=== PATIENT | male | born 1975 | race African-American/Black ===

== ENCOUNTER 2025-09-13 06:18 | Inpatient (IN) | payer MEDICAID ==
[2025-09-13 14:43] VITALS: BP 113/87; PULSE 85; RESP 16; TEMP 97.7; O2SAT 99
[2025-09-13 20:10] VITALS: BP 130/94; PULSE 96; RESP 18; TEMP 97.7; O2SAT 98
[2025-09-14 08:09] VITALS: BP 125/82; PULSE 81; RESP 18; TEMP 97.7; O2SAT 98
[2025-09-14 08:16] LABS: PLATELET COUNT (AUTO) 190 K/uL (150-450); RED BLOOD CELL COUNT(AUTO) 3.75 MIL/uL (4.50-5.90); RED CELL DISTRIBUTION WIDTH 12.6 % (11.5-14.5); WHITE BLOOD COUNT (AUTO) 3.4 K/uL (4.5-11.0)
[2025-09-14] MEDS ORDERED: ACETAMINOPHEN 325 MG TABLET PO PRN (08:30)
[2025-09-14] MEDS ORDERED: MAG HYDROX/ALUMINUM HYD/SIMETH ES 30 ML SUSPENSION UDCUP PO PRN (08:30)
[2025-09-14] MEDS ORDERED: MAGNESIUM HYDROXIDE SUSPENSION 30 ML UDCUP PO PRN (08:30)
[2025-09-14] MEDS ORDERED: ALBUTEROL SULFATE HFA 90 MCG/PUFF 8 GM INHALER IH PRN (08:30)
[2025-09-14] MEDS ORDERED: OMEPRAZOLE 20 MG CAPSULE PO PRN (08:30)
[2025-09-14] MEDS ORDERED: BENZOCAINE/MENTHOL [CEPACOL] LOZENGE PO PRN (08:30)
[2025-09-14] MEDS ORDERED: BACITRACIN 28 GM OINTMENT TP PRN (08:30)
[2025-09-14] MEDS ORDERED: IBUPROFEN 600 MG TABLET PO PRN (08:30)
[2025-09-14] MEDS ORDERED: PETROLATUM,WHITE 28 GM JELLY TP PRN (08:30)
[2025-09-14] MEDS ORDERED: DOCUSATE SODIUM 100 MG CAPSULE PO PRN (08:30)
[2025-09-14] MEDS ORDERED: ONDANSETRON 4 MG TABLET PO PRN (08:30)
[2025-09-14] MEDS ORDERED: LOPERAMIDE HCL 2 MG CAPSULE PO PRN (08:30)
[2025-09-14 08:50] LABS: ASPARTATE AMINOTRANSFERASE 25 U/L (15-37); CALCIUM, TOTAL 8.4 mg/dL (8.8-10.5); CHOL/HDL RATIO 2.0 (4.2-7.3); CREATININE 0.71 mg/dL (0.60-1.30); GLOMERULAR FILTR. RATE CALC > 60 mL/min (>60); GLUCOSE,RANDOM 78 mg/dL (70-110); LDL CHOL (CALC.) 75 mg/dL (0-130); SODIUM SERUM 138 mmol/L (136-145); TOTAL PROTEIN, SERUM 6.5 g/dL (6.4-8.2); UREA NITROGEN, BLOOD 10 mg/dL (7-18)
[2025-09-14] MEDS: SERTRALINE HCL 50 MG TABLET PO SCH (12:11)
[2025-09-14] MEDS: LITHIUM CARBONATE 300 MG CAPSULE PO SCH (12:12)
[2025-09-14 20:29] VITALS: BP 122/75; PULSE 99; RESP 18; TEMP 98.6; O2SAT 100
[2025-09-15 08:44] VITALS: BP 101/76; PULSE 92; RESP 17; TEMP 98.2; O2SAT 99
[2025-09-15 09:10] LABS: PH,URINE DRUG SCREEN 7.0 (5.0-8.0)
[2025-09-15 09:15] LABS: ALCOHOL, URINE DRUG SCREEN NEGATIVE (NEGATIVE); AMPHET/METH SCREEN,URINE POSITIVE (NEGATIVE); BARBITURATE SCREEN, URINE NEGATIVE (NEGATIVE); CANNABINOID SCREEN,URINE POSITIVE (NEGATIVE); COCAINE SCREEN,URINE NEGATIVE (NEGATIVE); METHADONE SCREEN, URINE NEGATIVE (NEGATIVE)
[2025-09-15 20:56] VITALS: BP 103/77; PULSE 90; RESP 18; TEMP 97.9; O2SAT 98
[2025-09-16 08:36] VITALS: BP 100/72; PULSE 67; RESP 16; TEMP 98; O2SAT 99
[2025-09-16 18:04] VITALS: BP 126/99; PULSE 100
[2025-09-16] MEDS: ZOLPIDEM TARTRATE 10 MG TABLET PO PRN (20:58)
[2025-09-17 08:32] VITALS: BP 119/89; PULSE 91; RESP 16; TEMP 98.1; O2SAT 99
[2025-09-17 20:20] VITALS: BP 109/60; PULSE 99; RESP 16; TEMP 98.8; O2SAT 100
[2025-09-18 10:46] VITALS: BP 91/62; RESP 17; TEMP 98.2; O2SAT 98
[2025-09-18 20:14] VITALS: BP 110/74; PULSE 88; RESP 17; TEMP 99.1; O2SAT 99
[2025-09-19 08:08] VITALS: BP 119/81; PULSE 78; RESP 18; TEMP 97.9; O2SAT 95
[2025-09-19] MEDS: NICOTINE POLACRILEX 4 MG LOZENGE PO PRN (12:29)
[2025-09-20 08:14] VITALS: BP 115/79; PULSE 80; RESP 19; TEMP 97.8; O2SAT 96
[2025-09-20 20:24] VITALS: BP 100/83; PULSE 103; RESP 16; TEMP 97; O2SAT 100
[2025-09-21 08:13] VITALS: BP 117/89; PULSE 106; RESP 16; TEMP 97; O2SAT 100
[2025-09-21 20:57] VITALS: BP 139/89; PULSE 82; RESP 16; TEMP 98.1; O2SAT 96
[2025-09-22 08:28] VITALS: BP 123/90; PULSE 99; RESP 18; TEMP 97.6; O2SAT 100
[2025-09-22 20:15] VITALS: BP 113/79; PULSE 98; RESP 17; TEMP 97.5; O2SAT 98
[2025-09-23 08:27] VITALS: BP 119/88; PULSE 94; RESP 15; TEMP 97.8; O2SAT 100
== END 2025-09-23 16:11 | disposition home or self-care (01) | DRG 761 ==
LOC: B3A 11:14
PROVIDERS: ADMIT Psychiatry & Neurology Psychiatry; ATTEND Psychiatry & Neurology Psychiatry
PROC: GZ52ZZZ Individual Psychotherapy, Cognitive (ICD-10-PCS; principal; 2025-09-14)
PROC: GZHZZZZ Group Psychotherapy (ICD-10-PCS; 2025-09-14)
DX: F25.1 Schizoaffective disorder, depressive type (principal); R45.851 Suicidal ideations; F12.10 Cannabis abuse, uncomplicated; F10.90 Alcohol use, unspecified, uncomplicated; F15.10 Other stimulant abuse, uncomplicated; Y90.9 Presence of alcohol in blood, level not specified; F41.9 Anxiety disorder, unspecified; G47.00 Insomnia, unspecified; Z79.899 Other long term (current) drug therapy; Z72.0 Tobacco use
CPT/HCPCS: 80053; 80061; 80178; 80307; 83036; 84439; 85025

== ENCOUNTER 2025-10-09 13:18 | Inpatient (IN) | payer MEDICAID ==
[~2025-10-09] VITALS: Ht 175.3 cm; Wt 68.0 kg
[2025-10-09] MEDS ORDERED: ZOLPIDEM TARTRATE 10 MG TABLET PO PRN (13:45)
[2025-10-09 17:41] VITALS: BP 116/66; PULSE 62; RESP 16; TEMP 97.3; O2SAT 99
[2025-10-09] MEDS ORDERED: INFLUENZA VIRUS VACCINE TVS (6MO+) 2025-26/PF 45 MCG/0.5 ML SYRINGE IM. ONE (18:15)
[2025-10-09 18:36] LABS: GLUCOMETER DEV NAME(LOC) POC.BV; POC SARS-COV2 AG, FIA NEGATIVE (NEGATIVE)
[2025-10-09 20:13] VITALS: RESP 17
[2025-10-09 20:18] VITALS: BP 117/67; PULSE 63; RESP 15; TEMP 99.1; O2SAT 99
[2025-10-10 08:29] LABS: PLATELET COUNT (AUTO) 199 K/uL (150-450); RED BLOOD CELL COUNT(AUTO) 3.64 MIL/uL (4.50-5.90); RED CELL DISTRIBUTION WIDTH 13.3 % (11.5-14.5); WHITE BLOOD COUNT (AUTO) 5.1 K/uL (4.5-11.0)
[2025-10-10] MEDS ORDERED: DOCUSATE SODIUM 100 MG CAPSULE PO PRN (08:45)
[2025-10-10] MEDS ORDERED: MAG HYDROX/ALUMINUM HYD/SIMETH ES 30 ML SUSPENSION UDCUP PO PRN (08:45)
[2025-10-10] MEDS ORDERED: MAGNESIUM HYDROXIDE SUSPENSION 30 ML UDCUP PO PRN (08:45)
[2025-10-10] MEDS ORDERED: IBUPROFEN 600 MG TABLET PO PRN (08:45)
[2025-10-10] MEDS ORDERED: ACETAMINOPHEN 325 MG TABLET PO PRN (08:45)
[2025-10-10] MEDS ORDERED: BENZOCAINE/MENTHOL [CEPACOL] LOZENGE PO PRN (08:45)
[2025-10-10] MEDS ORDERED: LOPERAMIDE HCL 2 MG CAPSULE PO PRN (08:45)
[2025-10-10] MEDS ORDERED: ALBUTEROL SULFATE HFA 90 MCG/PUFF 8 GM INHALER IH PRN (08:45)
[2025-10-10] MEDS ORDERED: OMEPRAZOLE 20 MG CAPSULE PO PRN (08:45)
[2025-10-10] MEDS ORDERED: BACITRACIN 28 GM OINTMENT TP PRN (08:45)
[2025-10-10] MEDS ORDERED: ONDANSETRON 4 MG TABLET PO PRN (08:45)
[2025-10-10] MEDS ORDERED: PETROLATUM,WHITE 28 GM JELLY TP PRN (08:45)
[2025-10-10] MEDS ORDERED: NICOTINE POLACRILEX 4 MG LOZENGE PO PRN (08:45)
[2025-10-10 08:46] VITALS: BP 100/65; PULSE 73; RESP 16; TEMP 99; O2SAT 100
[2025-10-10 08:56] LABS: ASPARTATE AMINOTRANSFERASE 23 U/L (15-37); CALCIUM, TOTAL 8.6 mg/dL (8.8-10.5); CHOL/HDL RATIO 2.2 (4.2-7.3); CREATININE 1.07 mg/dL (0.60-1.30); GLOMERULAR FILTR. RATE CALC > 60 mL/min (>60); GLUCOSE,RANDOM 65 mg/dL (70-110); LDL CHOL (CALC.) 96 mg/dL (0-130); SODIUM SERUM 140 mmol/L (136-145); TOTAL PROTEIN, SERUM 6.4 g/dL (6.4-8.2); UREA NITROGEN, BLOOD 11 mg/dL (7-18)
[2025-10-10] MEDS: SERTRALINE HCL 50 MG TABLET PO SCH (12:17)
[2025-10-10 13:14] VITALS: RESP 16
[2025-10-10 14:14] VITALS: RESP 16
[2025-10-10] MEDS: LITHIUM CARBONATE 300 MG CAPSULE PO SCH (16:15)
[2025-10-10 20:36] VITALS: BP 113/77; PULSE 85; RESP 17; TEMP 98.1; O2SAT 98
[2025-10-11 08:26] VITALS: BP 117/80; PULSE 99; RESP 18; TEMP 98.1; O2SAT 100
[2025-10-11] MEDS ORDERED: RISP-32 PO (12:35)
[2025-10-11] MEDS ORDERED: LITH300C3 PO (12:35)
[2025-10-11] MEDS ORDERED: SERT-158 PO (12:37)
== END 2025-10-11 15:27 | disposition home or self-care (01) | DRG 750 ==
LOC: B2S 17:09
PROVIDERS: ADMIT Psychiatry & Neurology Psychiatry; ATTEND Psychiatry & Neurology Psychiatry
PROC: GZ58ZZZ Individual Psychotherapy, Cognitive-Behavioral (ICD-10-PCS; principal; 2025-10-10)
PROC: GZ56ZZZ Individual Psychotherapy, Supportive (ICD-10-PCS; 2025-10-10)
DX: F20.0 Paranoid schizophrenia (principal); F10.90 Alcohol use, unspecified, uncomplicated; F12.10 Cannabis abuse, uncomplicated; F41.9 Anxiety disorder, unspecified; Y90.9 Presence of alcohol in blood, level not specified; Z20.822 Contact with and (suspected) exposure to COVID-19; G47.00 Insomnia, unspecified; Z72.0 Tobacco use; Z71.6 Tobacco abuse counseling; Z91.199 Patient's noncompliance with other medical treatment and regimen due to unspecified reason
CPT/HCPCS: 80053; 80061; 83036; 84439; 84443; 85025